=== PATIENT | female | born 1950 | race Two or more races ===

== ENCOUNTER 2018-12-18 08:08 | Outpatient (CLI) | payer OTHER | END 2018-12-18 09:30 | disposition home or self-care (01) | LOC: LAB 08:08 → EDBD 08:08 → LAB 09:30 | DX: D50.0 Iron deficiency anemia secondary to blood loss (chronic) (principal) ==

== ENCOUNTER → 2018-12-23 17:35 | Outpatient (CLI) | payer OTHER | END | disposition home or self-care (01) | LOC: LAB 17:35 | DX: D58.2 Other hemoglobinopathies (principal); K21.0 Gastro-esophageal reflux disease with esophagitis; K29.70 Gastritis, unspecified, without bleeding; K44.9 Diaphragmatic hernia without obstruction or gangrene ==